=== PATIENT | male | born 1975 | race Caucasian/White ===

== ENCOUNTER → 2021-07-06 10:25 | Outpatient (CLI) | payer OTHER, SELFPAY ==
--- NOTE | ~2021-07-06 | CT_ITS ---
EXAMINATION: CT abdomen pelvis w con INDICATION: Abdominal pain TECHNIQUE: Computed tomographic images of the abdomen and pelvis were obtained after the administrati on of 100 cc of Omnipaque 350 intravenous contrast. The dose-length product (DLP) was 711.12 mGy-cm. Automated exposure control and iterative reconstruction technique were employed. COMPARISON: None available FINDINGS: Minimal dependent atelectasis is present in the lung bases. The heart size is normal. The l iver, spleen, pancreas, gallbladder, and adrenal glands are normal. The kidneys are unremarkable. No pathologically enlarged abdominal or pelvic lymph nodes are identified. There is no free intraperiton eal gas or evidence of bowel obstruction. The appendix is normal. There is mild lumbar spondylosis. IMPRESSION: 1. No CT correlate for the patient's symptoms. Reviewed, dictated and finalized at location A.
== END ==
PROVIDERS: PCP Internal Medicine; Visit Provider Physician Assistant Medical
DX: R10.9 Unspecified abdominal pain (principal); M47.816 Spondylosis without myelopathy or radiculopathy, lumbar region
CPT/HCPCS: 74177; Q9967

== ENCOUNTER 2024-10-16 10:23 | Outpatient (CLI) | payer OTHER, SELFPAY ==
--- NOTE | ~2024-10-16 | MR_ITS ---
EXAMINATION: MR humerus LT wo con DATE: 10/16/2024 11:03 INDICATION: Left humeral head injury with bruising and strain of muscle, fascia and tendon post injur y one week prior. TECHNIQUE: Magnetic resonance imaging (MRI) of the left humerus was performed without intravenous con trast. Sequences included axial, sagittal and coronal T1-weighted FSE and fluid sensitive FSE STIR. COMPARISON: None. FINDINGS: Bone alignment is normal with normal marrow signal throughout. No fracture or pathologic marrow repla cing process. There is a tear and proximal retraction of the biceps brachii tendon with small amount of fluid surrounding the lax and wavy appearing tendon at the anterior aspect of the distal upper arm . Tear margin in the region of the radial tuberosity insertion of the distal tendon is not included w ithin the field of imaging precluding quantitative assessment of the amount of retraction. Remaining muscles and tendons in the left upper arm are unremarkable. No glenohumeral or elbow joint effusion. The glenoid labrum appears normal although assessment is significantly more limited than on a standar d smaller [id number] MRI of the shoulder. IMPRESSION: 1. Tear of the distal biceps brachii tendon. Reviewed, dictated and finalized at location B. N DISTRIBUTOR
== END 2024-10-16 10:24 | disposition home or self-care (01) ==
PROVIDERS: PCP Nurse Practitioner Family; Visit Provider Nurse Practitioner Family
DX: S46.212A Strain of muscle, fascia and tendon of other parts of biceps, left arm, initial encounter (principal); X58.XXXA Exposure to other specified factors, initial encounter
CPT/HCPCS: 73218

== ENCOUNTER 2024-12-11 13:40 | Outpatient (CLI) | payer OTHER, SELFPAY ==
--- NOTE | ~2024-12-11 | MR_ITS ---
EXAMINATION: MR knee RT wo con DATE: 12/11/2024 14:09 INDICATION: Right knee pain TECHNIQUE: Magnetic resonance imaging (MRI) of the right knee was performed without intravenous contr ast. Sequences included coronal PD-weighted FSE, coronal PD-weighted FS FSE, sagittal T2-weighted FS E, sagittal PD-weighted FS FSE and axial PD weighted fat saturated FSE. COMPARISON: None. FINDINGS: Medial compartment: Deep chondral ulceration with underlying subarticular edema-like signal change at the anterior weight bearing medial femoral condyle and anterior third of the medial tibial plateau. Less severe partial t hickness chondral ulceration and deep fissuring with additional mild subarticular edema-like signal c hange along the central weightbearing medial femoral condyle. Lateral compartment: Lateral meniscus is normal. Articular cartilage is normal. Patellofemoral compartment: Partial-thickness chondral ulceration and deep fissuring at the patellar apical ridge and medial cleveland llar facet, the latter with associated subarticular edema-like signal changes. Additional deep fissur ing with mild underlying cortical irregularity at the inferior aspect of the trochlear groove and med ial trochlea. Ligaments and tendons: Anterior and posterior cruciate ligaments are normal. The medial collateral ligament and fibular luisa ateral ligament complex are normal. The extensor mechanism is normal. The visualized medial and later al hamstring tendons as well as the iliotibial band are normal. Fluid: Large right knee joint effusion. There multiple low signal intensity loose osteochondral bodies in th e anterior recess of the knee and additional small loose osteochondral body in the recess along the p opliteal ligament. Osseous/other: Bone alignment is normal. No fracture or pathologic marrow replacing process. There is some soft tiss ue edema surrounding the right knee most prominent at the popliteal recess. IMPRESSION: 1. Moderate osteoarthritis with extensive high-grade chondromalacia in the medial compartment and mil d osteoarthritis with additional high-grade chondromalacia in the patellofemoral compartment. 2. Large right knee joint effusion with a few loose osteochondral bodies. Reviewed, dictated and finalized at location A. IMPRESSION: 1. Moderate osteoarthritis with extensive high-grade chondromalacia in the medi al compartment and mild osteoarthritis with additional high-grade chondromalaci a in the patellofemoral compartment. 2. Large right knee joint effusion with a few loose osteochondral bodies.
== END 2024-12-11 13:41 | disposition home or self-care (01) ==
PROVIDERS: PCP Nurse Practitioner Family; Visit Provider Nurse Practitioner Family
DX: M17.11 Unilateral primary osteoarthritis, right knee (principal); M22.41 Chondromalacia patellae, right knee; M25.461 Effusion, right knee; M23.41 Loose body in knee, right knee; M23.91 Unspecified internal derangement of right knee
CPT/HCPCS: 73721

== ENCOUNTER 2025-01-26 15:30 | Outpatient (RCR) | payer OTHER, SELFPAY ==
--- NOTE | 2025-01-21 08:58 | OTOPEVDC ---
Assessment and note entered by Oskar Lazaro, OTR/L, CHT Thank you for referring Thong Grier to [facility] [place].? An evaluation has been completed. No further treatment is needed. Evaluation Information & Discharge Notification Assessment Status Evaluation Diagnosis CVA Subjective Information Patient presents with his , Kelin. They report he was diagnosed with an acute CVA in December. He discharged from acute care to [facility] for inpatient rehab where he received PT/OT/ST services for about 6 days and discharged home 01/17/25. He reports he has returned to being independent with bathing/dressing. He reports his UB strength feels symmetrical. He states his biggest limitation is blurred vision. Reported Pain Level Pain Score 0: Self Report Assessment OT Clinical Summary Patient referred to OT with dx of CVA. He presents with intact and functional UB strength and fine motor coordination. He is able to transfer independently. He is reporting his biggest limitation at this time is his vision, specifically blurry vision. He denies diplopia. Ocular fixation, ROM, tracking, and saccades are WNL. He does not appear to have a deficit in the ocular muscles. He does not appear to have a visual field loss. He and his report they also have a referral to a vision specialty clinic for an eye exam and vision therapy. At this time that appears to be the appropriate setting for his visual deficits. No further skilled OT indicated at this time. Plan of Care OT Services Indicated No
--- NOTE | 2025-02-08 12:30 | PTOPEVDC ---
Assessment and note entered by Gardenia Persaud, PT Thank you for referring Thong Grier to [facility].? An evaluation has been completed. No further treatment is needed. Evaluation Information Assessment Status Discharge - Pt Not Present Diagnosis I63.9, R26.9 ICD-10 Condition Codes (PT) Abnormalities of gait and mobility R26.9,Weakness R53.1 Subjective Information 4 weeks post arthroscopic surgery R knee. post CVA , finished acute rehab at [facility]. Reports feeling good and not noticing any issues with his walking, no problem going up and down the stairs. Has some difficulty with vision that was affected by the stroke. Reported Pain Level Pain Score 0: Self Report Assessment PT Clinical Summary Pt presents to therapy to transition to Outpatient Physical Therapy after attending Acute Rehab post hospital admission secondary to CVA 01/03/25. Pt demos good functional strength to BLEs, good balance and functional mobility amd indep ambulation without significant deficits and issues that would impact ADLs and return to his job. However, pt is greatly limited due to visual impairments, MRI revealed large area of acute infarct, right temporal and occipital lobes. According to 's report, a referral to a Specialized Vision Therapist is already made. HEPs for general strengthening and balance provided, pt and patient's performed return demo with good accuracy. No skilled PT intervention necessary at this time. Plan of Care PT Services Indicated No
--- NOTE | 2025-02-08 12:31 | PTOPEVDC ---
Assessment and note entered by Gardenia Persaud, PT Thank you for referring Thong Grier to [facility].? An evaluation has been completed. No further treatment is needed. Evaluation Information and Discharge Notification Assessment Status Evaluation and Discharge Diagnosis I63.9, R26.9 ICD-10 Condition Codes (PT) Abnormalities of gait and mobility R26.9,Weakness R53.1 Subjective Information 4 weeks post arthroscopic surgery R knee. post CVA , finished acute rehab at [facility]. Reports feeling good and not noticing any issues with his walking, no problem going up and down the stairs. Has some difficulty with vision that was affected by the stroke. Reported Pain Level Pain Score 0: Self Report Assessment PT Clinical Summary Pt presents to therapy to transition to Outpatient Physical Therapy after attending Acute Rehab post hospital admission secondary to CVA 01/03/25. Pt demos good functional strength to BLEs, good balance and functional mobility amd indep ambulation without significant deficits and issues that would impact ADLs and return to his job. However, pt is greatly limited due to visual impairments, MRI revealed large area of acute infarct, right temporal and occipital lobes. According to 's report, a referral to a Specialized Vision Therapist is already made. HEPs for general strengthening and balance provided, pt and patient's performed return demo with good accuracy. No skilled PT intervention necessary at this time. Plan of Care PT Services Indicated No
== END 2025-02-08 16:17 | disposition home or self-care (01) ==
LOC: ANHHIPT 15:30
PROVIDERS: PCP Nurse Practitioner Family; Visit Provider Nurse Practitioner Family
DX: I63.9 Cerebral infarction, unspecified (principal); R26.9 Unspecified abnormalities of gait and mobility
CPT/HCPCS: 97110; 97116; 97166